=== PATIENT | male | born 1960 | race Caucasian/White ===

== ENCOUNTER → 2018-07-21 09:14 | Outpatient (CLI) | payer OTHER, SELFPAY ==
[2018-05-28 15:23] VITALS: BMI 31.6
[2018-07-21 10:55] LABS: AST(SGOT) 26 U/L (15-37); Alanine Aminotransfer ALT/SGPT 49 U/L (16-61); Albumin, Serum 4.2 g/dL (3.2-5.0); Alkaline Phosphatase 53 U/L (45-117); Bilirubin, Direct 0.18 mg/dL (0.00-0.30); Cholesterol 131 mg/dL (200); Globulin 3.6 g/dL (2.2-4.2); High Density Lipoprotein 62 mg/dL; Protein, Total 7.8 g/dL (6.4-8.2); Triglycerides 50 mg/dL; Very Low Density Lipoprotein 10 mg/dL (5-40)
== END ==
PROVIDERS: Referring Provider Internal Medicine Cardiovascular Disease; Visit Provider Internal Medicine Cardiovascular Disease
DX: E78.5 Hyperlipidemia, unspecified (principal); I25.10 Atherosclerotic heart disease of native coronary artery without angina pectoris
CPT/HCPCS: 36415; 80061; 80076

== ENCOUNTER → 2018-09-26 08:40 | Outpatient (CLI) | payer OTHER, SELFPAY ==
[2018-05-28 15:23] VITALS: BMI 31.6
--- NOTE | 2018-09-26 08:42 | ECHOD_ITS ---
Reason For Study: BICUSPID AORTIC VALVE Procedure This was a 2D Doppler, Color Flow transthoracic echocardiogram. Exam performed in department. Left Ventricle Normal size and thickness. The estimated ejection fraction is 65 %. Normal diastology for age. No regional wall motion abnormalities noted. Right Ventricle Mildly dilated right ventricle. Normal systolic function. Atria Normal left atrium. Normal right atrium. Normal atrial septum. Mitral Valve The mitral valve is structurally normal. No prolapse or stenosis seen. Tricuspid Valve Normal tricuspid valve. Trivial tricuspid valve insufficiency. Right ventricular systolic pressure estimated to be 41 mmHg. Mild pulmonary hypertension. Aortic Valve Bicuspid aortic valve. Moderate focal aortic valve thickening. Moderate focal aortic valve calcification. Moderate restriction of the aortic valve. Mild aortic stenosis. Peak aortic valve gradient 26 mmHg. Mean aortic valve gradient 16 mmHg. Calculated aortic valve area (continuity equation) is 2.3 cm2. Pulmonic Valve Normal pulmonic valve. Great Vessels Mildly dilated aortic root. Mild atherosclerosis of the aortic arch. Normal inferior vena cava. Inferior vena cava collapse with sniff. Pericardium/Pleural No pericardial effusion. MMode/2D Measurements & Calculations LVIDd: 5.3 cm IVSd: 0.95 cm LVOT diam: 2.4 cm LVIDs: 3.0 cm LVPWd: 1.00 cm LVOT area: 4.4 cm2 RVDd: 4.2 cm FS: 42.9 % Ao root diam: 3.9 cm LAV(MOD-bp): 48.3 ml LVAd ap4: 32.4 cm2 LAV(MOD-bp) Indexed: 23.4 ml/m2 EDV(MOD-sp4): 101.1 ml LAV(MOD-sp2): 45.3 ml EDV(sp4-el): 106.3 ml LAV(MOD-sp4): 41.9 ml LVAs ap4: 17.6 cm2 ESV(MOD-sp4): 36.9 ml ESV(sp4-el): 38.6 ml EF(MOD-sp4): 63.5 % EF(sp4-el): 63.7 % SV(MOD-sp4): 64.2 ml SV(sp4-el): 67.7 ml LA A4 area: 16.3 cm2 LA dimension(2D): 3.3 cm RA A4 area: 14.4 cm2 Time Measurements MV dec time: 0.24 sec Doppler Measurements & Calculations MV E max aj: 83.1 cm/sec Lat Peak E' Aj: 9.6 cm/sec Med Peak E' Aj: 8.9 cm/sec MV A max aj: 75.6 cm/sec E/E' lat: 8.6 E/E' med: 9.3 MV E/A: 1.1 Ao V2 max: 254.9 cm/sec LV V1 max: 118.1 cm/sec SV(LVOT): 134.5 ml Ao max P.0 mmHg LV V1 max P.6 mmHg Ao V2 mean: 187.2 cm/sec LV V1 mean P.5 mmHg Ao mean P.6 mmHg LV V1 mean: 87.6 cm/sec Ao V2 VTI: 58.9 cm LV V1 VTI: 30.4 cm TESSA(I,D): 2.3 cm2 TESSA(V,D): 2.0 cm2 PA V2 max: 125.0 cm/sec TR max aj: 299.9 cm/sec TR max P.0 mmHg Interpretation Summary The estimated ejection fraction is 65 %. Normal diastology for age. Mildly dilated right ventricle. Trivial tricuspid valve insufficiency. Right ventricular systolic pressure estimated to be 41 mmHg. Mild aortic stenosis. Calculated aortic valve area (continuity equation) is 2.3 cm2. Mildly dilated aortic root. Mild atherosclerosis of the aortic arch. Compared to echo report dated 08/26/2015, LV Function, degree of aortic stenosis and aortic root have remained the same but RVSP hsa increased from 34 to 41 mm Hg. Ordering Physician: Triston Whittington Referring Physician: Triston Whittington Performed By: Julienne Arrieta RDCS
== END ==
PROVIDERS: Referring Provider Internal Medicine Cardiovascular Disease; Visit Provider Internal Medicine Cardiovascular Disease
DX: I35.2 Nonrheumatic aortic (valve) stenosis with insufficiency (principal); I71.2 Thoracic aortic aneurysm, without rupture; I10 Essential (primary) hypertension; E78.5 Hyperlipidemia, unspecified
CPT/HCPCS: 93306

== ENCOUNTER → 2019-08-26 08:09 | Outpatient (CLI) | payer OTHER, SELFPAY ==
[2019-07-02 11:18] VITALS: BMI 31.1
--- NOTE | 2019-08-26 08:10 | CT_ITS ---
STUDY: CTA CHEST REASON FOR EXAM: Male, 59 years old. TAA FOLLOW-UP. PLEASE COMPARE AND GIVE MEASUREMENTS WITH CTA CHEST FROM 02/22/16 RADIATION DOSAGE (If Supplied By Facility): CTDIvol = ( 44.50 ) mGy, DLP = ( 5336.50 ) mGycm TECHNIQUE: The examination was performed with the intravenous administration of 100 ML ISOVUE 300. Post-processing of the angiographic images was performed, with multiplanar reformation and 3D reconstruction. Individualized dose optimization techniques were used for this CT. COMPARISON: Comparison is made with prior examination dated September 07, 2015. FINDINGS: Normal enhancement of the main pulmonary artery and right and left pulmonary arteries. Normal enhancement of the bilateral peripheral pulmonary arteries. There is no demonstrated pulmonary embolism. There is aneurysmal dilatation of the ascending aorta. The transverse diameter of the ascending aorta measures 47.1 mm''s. There is no demonstrated aortic dissection. Normal heart and pericardium. Mitral valve calcification. There are visualized mediastinal lymph nodes, which are within normal size limits, and with normal morphology. Normal hilar regions. Normal visualized trachea and bronchi. The lungs are well expanded. Normal pulmonary parenchyma. Normal pleura. Normal chest wall structures. There are degenerative changes of thoracic spine. Diffuse fatty infiltration of the liver. CT/CTA Chest W/WO Contrast IMPRESSION: Stable dilatation of the ascending thoracic aortic aneurysm. Electronically Signed: Jimmy Roa, at 11:10 EST , Service support ,
== END ==
PROVIDERS: PCP Family Medicine; Referring Provider Internal Medicine Cardiovascular Disease; Visit Provider Internal Medicine Cardiovascular Disease
DX: I71.2 Thoracic aortic aneurysm, without rupture (principal); I25.10 Atherosclerotic heart disease of native coronary artery without angina pectoris; Q23.1 Congenital insufficiency of aortic valve
CPT/HCPCS: 71275; Q9967

== ENCOUNTER → 2020-05-25 09:08 | Outpatient (CLI) | payer OTHER, SELFPAY ==
[2020-02-25 09:41] VITALS: BMI 30.9
--- NOTE | 2020-05-25 09:08 | ECHOD_ITS ---
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 The study was technically difficult. Exam performed in department. Left Ventricle Normal LV size. Mild concentric left ventricular hypertrophy. Left ventricular systolic function is normal. The estimated ejection fraction is 60 %. No regional wall motion abnormalities noted. Right Ventricle Normal RV size. Normal systolic function. Atria Normal left atrium. Normal right atrium. Mitral Valve Normal mitral valve. Tricuspid Valve Normal tricuspid valve. Aortic Valve The aortic valve is not well visualized. Cannot exclude bicuspid. Peak aortic valve gradient 37 mmHg. Mean aortic valve gradient 25 mmHg. Calculated aortic valve area (continuity equation) is 1.1 cm2. Mild to moderate aortic stenosis. Pulmonic Valve Normal pulmonic valve. Great Vessels Normal aortic root. The pulmonary artery is normal size. Normal inferior vena cava. Pericardium/Pleural No pericardial effusion. Medication Previously negative bubble on SANTOS. MMode/2D Measurements & Calculations LVIDd: 4.5 cm IVSd: 1.3 cm LVOT diam: 2.0 cm LVIDs: 2.7 cm LVPWd: 1.2 cm FS: 40.3 % LVOT area: 3.2 cm2 Ao root diam: 4.3 cm LAV(MOD-bp): 42.3 ml LVAd ap4: 33.3 cm2 LAV(MOD-bp) Indexed: 20.6 ml/m2 EDV(MOD-sp4): 104.7 ml LAV(MOD-sp2): 41.7 ml EDV(sp4-el): 110.9 ml LAV(MOD-sp4): 39.6 ml LVAs ap4: 17.9 cm2 ESV(MOD-sp4): 37.6 ml ESV(sp4-el): 39.1 ml EF(MOD-sp4): 64.1 % EF(sp4-el): 64.8 % SV(MOD-sp4): 67.1 ml SV(sp4-el): 71.8 ml LA A4 area: 14.0 cm2 LA dimension(2D): 3.3 cm RA A4 area: 14.8 cm2 Time Measurements MV dec time: 0.25 sec Doppler Measurements & Calculations MV E max aj: 70.7 cm/sec Lat Peak E' Aj: 7.7 cm/sec Med Peak E' Aj: 7.2 cm/sec MV A max aj: 77.5 cm/sec E/E' lat: 9.2 E/E' med: 9.9 MV E/A: 0.91 MV V2 max: 91.1 cm/sec Ao V2 max: 283.1 cm/sec LV V1 max: 92.5 cm/sec MV max P.3 mmHg Ao max P.4 mmHg LV V1 max P.5 mmHg MV V2 mean: 60.2 cm/sec Ao V2 mean: 239.6 cm/sec LV V1 mean P.8 mmHg MV mean P.6 mmHg Ao mean P.4 mmHg LV V1 mean: 91.7 cm/sec MV V2 VTI: 24.7 cm Ao V2 VTI: 73.4 cm LV V1 VTI: 30.3 cm MVA(VTI): 4.0 cm2 TESSA(I,D): 1.3 cm2 TESSA(V,D): 1.1 cm2 SV(LVOT): 97.8 ml TR max aj: 257.9 cm/sec MV P1/2t-pr_phl: 71.8 msec TR max P.6 mmHg Interpretation Summary Normal LV size. Left ventricular systolic function is normal. Mean aortic valve gradient 25 mmHg. Calculated aortic valve area (continuity equation) is 1.1 cm2. Mild to moderate aortic stenosis. The estimated ejection fraction is 60 %. Mild concentric left ventricular hypertrophy. Ordering Physician: Triston Whittington Referring Physician: IMELDA CREWS Performed By: Mela Aguilar, MANJINDER, RVT
[2020-05-25 11:19] LABS: AST(SGOT) 36 U/L (15-37); Alanine Aminotransfer ALT/SGPT 57 U/L (16-61); Albumin, Serum 4.1 g/dL (3.2-5.0); Alkaline Phosphatase 59 U/L (45-117); Bilirubin, Direct 0.12 mg/dL (0.00-0.30); Cholesterol 143 mg/dL (200); Globulin 3.8 g/dL (2.2-4.2); High Density Lipoprotein 63 mg/dL; Protein, Total 7.9 g/dL (6.4-8.2); Triglycerides 45 mg/dL; Very Low Density Lipoprotein 9 mg/dL (5-40)
== END ==
PROVIDERS: PCP Family Medicine; Referring Provider Internal Medicine Cardiovascular Disease; Visit Provider Internal Medicine Cardiovascular Disease
DX: I25.10 Atherosclerotic heart disease of native coronary artery without angina pectoris (principal); I35.2 Nonrheumatic aortic (valve) stenosis with insufficiency; I71.2 Thoracic aortic aneurysm, without rupture; E78.00 Pure hypercholesterolemia, unspecified; E78.5 Hyperlipidemia, unspecified
CPT/HCPCS: 36415; 80061; 80076; 93306

== ENCOUNTER → 2020-09-10 07:24 | Outpatient (CLI) | payer OTHER, SELFPAY ==
[2020-09-03 09:12] VITALS: BMI 31.9
--- NOTE | 2020-09-10 07:35 | CT_ITS ---
STUDY: CTA CHEST REASON FOR EXAM: Male, 60 years old. TAA RADIATION DOSAGE (If Supplied By Facility): CTDIvol = ( 12.85 ) mGy, DLP = ( 516. ) mGycm TECHNIQUE: The examination was performed with the intravenous administration of IV 100mL Isovue-370. Post-processing of the angiographic images was performed, with multiplanar reformation and 3D reconstruction. Individualized dose optimization techniques were used for this CT. COMPARISON: 08/26/2019 FINDINGS: Normal enhancement of the main pulmonary artery and right and left pulmonary arteries. Normal enhancement of the bilateral peripheral pulmonary arteries. There is no demonstrated pulmonary embolism. There is aneurysmal dilatation of the ascending aorta. The transverse diameter of the ascending aorta measures 47.1 mm''''s. There is no demonstrated aortic dissection. Normal heart and pericardium. Mitral valve calcification. There are visualized mediastinal lymph nodes, which are within normal size limits, and with normal morphology. Normal hilar regions. Normal visualized trachea and bronchi. The lungs are well expanded. Normal pulmonary parenchyma. Normal pleura. Normal chest wall structures. There are degenerative changes of thoracic spine. Diffuse fatty infiltration of the liver. CT/CTA Chest W/WO Contrast IMPRESSION: Stable dilatation of the ascending thoracic aortic aneurysm. Electronically Signed: Ramesh Betancur MD at 16:32 EST Tel , Service support ,
[2020-09-10 07:46] LABS: CREATININE FINGERSTICK 1.1 mg/dL (0.70-1.30); EGFR FINGERSTICK > 60.0000 mL/min (>60)
== END ==
PROVIDERS: PCP Family Medicine; Referring Provider Physician Assistant Medical; Visit Provider Physician Assistant Medical
DX: Q23.1 Congenital insufficiency of aortic valve (principal); I71.2 Thoracic aortic aneurysm, without rupture; E78.5 Hyperlipidemia, unspecified; I10 Essential (primary) hypertension; I25.10 Atherosclerotic heart disease of native coronary artery without angina pectoris
CPT/HCPCS: 71275; Q9967

== ENCOUNTER → 2021-07-14 12:33 | Outpatient (CLI) | payer OTHER, SELFPAY ==
--- NOTE | 2021-07-14 12:40 | ECHOD_ITS ---
Reason For Study: MURMUR Procedure This was a 2D Doppler, Color Flow transthoracic echocardiogram. The study was technically difficult. Exam performed in department. Left Ventricle Normal LV size. Sigmoid septum. Left ventricular systolic function is normal. The estimated ejection fraction is 65 %. Diastolic function is indeterminate. No regional wall motion abnormalities noted. Right Ventricle Normal RV size. Normal systolic function. Atria Normal left atrium. Normal right atrium. No doppler evidence for ASD. Mitral Valve There is mild mitral annular calcification. Normal mitral valve. Trivial mitral valve insufficiency. Tricuspid Valve Normal tricuspid valve. Trivial tricuspid valve insufficiency. Unable to estimate RV systolic pressure/pulmonary artery pressure due to technically difficult study. Aortic Valve The aortic valve is not well visualized, however, based upon the 2D echocardiographic images obtained there appears to be diffuse thickening, calcification, and partial restriction with spectral Doppler findings compatible with mild to moderate aortic valve stenosis.. Pulmonic Valve The pulmonic valve is not well visualized. Great Vessels The aortic root is not well visualized. Pericardium/Pleural No pericardial effusion. MMode/2D Measurements & Calculations LVIDd: 4.4 cm IVSd: 1.2 cm LVOT diam: 2.3 cm LVIDs: 3.0 cm LVPWd: 1.1 cm LVOT area: 4.2 cm2 RVDd: 3.4 cm FS: 32.7 % LAV(MOD-bp): 51.0 ml LA A4 area: 15.0 cm2 LA dimension(2D): 3.5 cm LAV(MOD-bp) Indexed: 25.2 ml/m2 LAV(MOD-sp2): 58.1 ml LAV(MOD-sp4): 41.1 ml RA A4 area: 14.3 cm2 Time Measurements MV dec time: 0.28 sec Doppler Measurements & Calculations MV E max aj: 71.4 cm/sec Lat Peak E' Aj: 8.3 cm/sec Med Peak E' Aj: 7.3 cm/sec MV A max aj: 78.6 cm/sec E/E' lat: 8.6 E/E' med: 9.8 MV E/A: 0.91 Ao V2 max: 318.6 cm/sec LV V1 max: 133.0 cm/sec SV(LVOT): 138.4 ml Ao max P.2 mmHg LV V1 max P.1 mmHg Ao V2 mean: 219.5 cm/sec LV V1 mean P.2 mmHg Ao mean P.9 mmHg LV V1 mean: 99.7 cm/sec Ao V2 VTI: 69.5 cm LV V1 VTI: 32.9 cm TESSA(I,D): 2.0 cm2 TESSA(V,D): 1.8 cm2 PA V2 max: 115.1 cm/sec ECHO/Echo Complete Interpretation Summary The study was technically difficult. Left ventricular systolic function is normal. The estimated ejection fraction is 65 %. Sigmoid septum. There is mild mitral annular calcification. Trivial mitral valve insufficiency. Trivial tricuspid valve insufficiency. The aortic valve is not well visualized, however, based upon the 2D echocardiog raphic images obtained there appears to be diffuse thickening, calcification, and partial res triction with spectral Doppler findings compatible with mild to moderate aortic valve stenosi s.. Unable to estimate RV systolic pressure/pulmonary artery pressure due to techni martinez difficult study. Diastolic function is indeterminate. Ordering Physician: Sandoval Gilbert Referring Physician: Nikita Wright Performed By: Мария Hodge, MANJINDER, RVT
== END ==
PROVIDERS: PCP Family Medicine; Referring Provider Internal Medicine Cardiovascular Disease; Visit Provider Internal Medicine Cardiovascular Disease
DX: I25.10 Atherosclerotic heart disease of native coronary artery without angina pectoris (principal); Q23.1 Congenital insufficiency of aortic valve; I71.2 Thoracic aortic aneurysm, without rupture; E78.5 Hyperlipidemia, unspecified; I10 Essential (primary) hypertension
CPT/HCPCS: 93306

== ENCOUNTER → 2021-07-20 08:30 | Outpatient (CLI) | payer OTHER, SELFPAY ==
[2021-07-20 09:25] LABS: AST(SGOT) 40 U/L (15-37); Alanine Aminotransfer ALT/SGPT 51 U/L (16-61); Albumin, Serum 4.2 g/dL (3.2-5.0); Alkaline Phosphatase 57 U/L (45-117); Bilirubin, Direct 0.09 mg/dL (0.00-0.30); Cholesterol 164 mg/dL (200); High Density Lipoprotein 82 mg/dL; Protein, Total 8.2 g/dL (6.4-8.2); Triglycerides 50 mg/dL; Very Low Density Lipoprotein 10 mg/dL (5-40)
== END ==
PROVIDERS: PCP Family Medicine; Referring Provider Internal Medicine Cardiovascular Disease; Visit Provider Internal Medicine Cardiovascular Disease
DX: E78.00 Pure hypercholesterolemia, unspecified (principal)
CPT/HCPCS: 36415; 80061; 80076

== ENCOUNTER → 2021-12-31 | Outpatient (CLI) | payer OTHER, SELFPAY | END | disposition home or self-care (01) | LOC: LAB 09:05 | PROVIDERS: PCP Family Medicine; Visit Provider Internal Medicine Cardiovascular Disease | DX: E78.00 Pure hypercholesterolemia, unspecified (principal) ==

== ENCOUNTER → 2022-02-14 | Outpatient (CLI) | payer OTHER, SELFPAY ==
--- NOTE | 2022-02-14 17:36 | CT_ITS ---
EXAM: CT ANGIOGRAPHY CHEST WITHOUT AND WITH INTRAVENOUS CONTRAST CLINICAL INDICATION: Thoracic Aortic Aneursym TECHNIQUE: Helically acquired angiography images were obtained of the chest without and with intravenous contrast. This CT exam was performed using one or more of the following dose reduction techniques: automated exposure control, adjustment of the mA and/or kV according to patient size, and/or use of iterative reconstruction technique. This report was created using [employer] report generation technology. MIP reconstructed images were created and reviewed. CONTRAST: IV 100mL Isovue-370 RADIATION DOSE: CTDIvol = 11.76 mGy, DLP = 628.55 mGy-cm COMPARISON: 09/10/2020 FINDINGS: PULMONARY ARTERIES: No demonstrated pulmonary embolism or arterial dissection. AORTA: 47 mm aneurysmal dilation of the ascending thoracic aorta. This is stable. There is atherosclerotic calcification of the aortic arch with tortuosity and elongation of the aortic arch and descending thoracic aorta. No evidence of dissection. GREAT VESSELS OF AORTIC ARCH: Unremarkable. Normal in caliber. No evidence of dissection. LUNGS AND PLEURAL SPACES: Unremarkable. No mass. No consolidation or edema. No pleural effusion or thickening. No pneumothorax. HEART: There are calcifications of the coronary arteries. No pericardial effusion. No signs of right heart strain, ratio of right ventricle to left ventricle measures less than 1. MEDIASTINUM: Unremarkable. No mediastinal or hilar adenopathy. Esophagus is unremarkable. No hiatal hernia. THYROID: Unremarkable. No thyroid lesions. BONES/JOINTS: There are degenerative changes of the shoulders. There are multi-level degenerative changes of the thoracic spine. No suspicious lytic or blastic abnormality. LIVER: Fatty liver. GALLBLADDER AND BILE DUCTS: Gallstones. CT/CTA Chest W/WO Contrast IMPRESSION: 1. Fatty liver. 2. Gallstones. 3. No demonstrated pulmonary embolism or arterial dissection. 4. 47 mm aneurysmal dilation of the ascending thoracic aorta. This is stable. Electronically Signed: Renny Mendes MD at 19:33 EDT ,
[2022-02-14 18:05] LABS: CREATININE FINGERSTICK < 0.9 mg/dL (0.70-1.30); EGFR FINGERSTICK > 60.0000 mL/min (>60)
== END | disposition home or self-care (01) ==
PROVIDERS: PCP Family Medicine; Visit Provider Nurse Practitioner Gerontology
DX: I71.2 Thoracic aortic aneurysm, without rupture (principal)
CPT/HCPCS: 71275; Q9967

== ENCOUNTER → 2022-03-14 | Outpatient (CLI) | payer OTHER, SELFPAY ==
--- NOTE | 2022-03-14 07:37 | CDU_ITS ---
Reason For Study: DIZZINESS Rt. Velocities/BP Lt. Velocities/BP Prox CCA 75.1/26.9 cm/sec. Prox CCA 97.8/24.1 cm/sec. Mid CCA 73.8/29.5 cm/sec. Mid CCA 79.3/22.8 cm/sec. Dist CCA 88.1/33.4 cm/sec. Dist CCA 80.6/25.3 cm/sec. Prox ICA 71.2/25.6 cm/sec. Prox ICA 75.7/22.8 cm/sec. Mid ICA 79.0/20.3 cm/sec. Mid ICA 65.8/31.4 cm/sec. Dist ICA 44.1/10.8 cm/sec. Dist ICA 75.7/36.4 cm/sec. Rt. ICA/CCA = 79.0/73.8=1.07. Lt. ICA/CCA = 75.7/79.3=0.95. Prox ECA 79.0/21.6 cm/sec. Prox ECA 67.1/19.2 cm/sec. Rt. Vert. 39.3/14.7 cm/sec. Lt. Vert. 56.7/22.6 cm/sec. Right Extracranial There is intimal thickening but no significant atherosclerotic plaque noted in the right common carotid artery. There is intimal thickening but no significant atherosclerotic plaque noted in the right internal carotid artery. There is intimal thickening but no significant atherosclerotic plaque noted in the right external carotid artery. Antegrade flow is noted in the right vertebral artery. Left Extracranial There is intimal thickening but no significant atherosclerotic plaque noted in the left common carotid artery. There is intimal thickening but no significant atherosclerotic plaque noted in the left internal carotid artery. There is intimal thickening but no significant atherosclerotic plaque noted in the left external carotid artery. Antegrade flow is noted in the left vertebral artery. Procedure Carotid Duplex 32547. The study was technically difficult. Due to high bifurcation bilaterally. Exam performed in department. VL/Carotid Duplex Ultrasound Interpretation Summary Intimal thickening at the proximal right internal carotid artery with less than 50% stenosis Less than 50% stenosis right external carotid artery Intimal thickening at the proximal left internal carotid artery with less than 50% stenosis Less than 50% stenosis left external carotid artery Patent antegrade vertebrals bilaterally Ordering Physician: Winsome Larson Referring Physician: Nikita Wright Performed By: Мария Hodge RDCS, RVT
== END | disposition home or self-care (01) ==
PROVIDERS: PCP Family Medicine; Referring Provider Nurse Practitioner Gerontology; Visit Provider Nurse Practitioner Gerontology
DX: R42 Dizziness and giddiness (principal)
CPT/HCPCS: 93880

== ENCOUNTER 2022-07-05 09:30 | Outpatient (CLI) | payer OTHER, SELFPAY ==
[2022-07-05 10:40] LABS: AST(SGOT) 24 U/L (15-37); Alanine Aminotransfer ALT/SGPT 32 U/L (16-61); Albumin, Serum 3.9 g/dL (3.2-5.0); Alkaline Phosphatase 54 U/L (45-117); Bilirubin, Direct 0.19 mg/dL (0.00-0.30); Cholesterol 146 mg/dL (200); Globulin 4.3 g/dL (2.2-4.2); High Density Lipoprotein 67 mg/dL; Protein, Total 8.2 g/dL (6.4-8.2); Triglycerides 37 mg/dL; Very Low Density Lipoprotein 7 mg/dL (5-40)
== END 2022-07-05 23:59 | disposition home or self-care (01) ==
LOC: LAB 09:32
PROVIDERS: PCP Family Medicine; Referring Provider Nurse Practitioner Gerontology; Visit Provider Nurse Practitioner Gerontology
DX: E78.5 Hyperlipidemia, unspecified (principal)
CPT/HCPCS: 36415; 80061; 80076

== ENCOUNTER → 2023-02-02 | Outpatient (CLI) | payer OTHER, SELFPAY ==
--- NOTE | 2023-02-02 08:23 | CT_ITS ---
STUDY: CTA CHEST REASON FOR EXAM: Male, 62 years old. TAA F/U RADIATION DOSAGE (If Supplied By Facility): CTDIvol = ( 19.18 ) mGy, DLP = ( 377.12 ) mGycm TECHNIQUE: The examination was performed with the intravenous administration of IV 100mL Isovue-300. Post-processing of the angiographic images was performed, with multiplanar reformation and 3D reconstruction. Individualized dose optimization techniques were used for this CT. COMPARISON: Comparison is made with prior study dated February 14, 2022. FINDINGS: Stable small benign-appearing bilateral axillary lymph nodes. Normal enhancement of the main pulmonary artery and right and left pulmonary arteries. Normal enhancement of the bilateral peripheral pulmonary arteries. There is no demonstrated pulmonary embolism. There is aneurysmal dilatation of the ascending aorta. The transverse diameter of the ascending aorta measures 49.9 mm''s. There is no demonstrated aortic dissection. There are calcifications of the coronary arteries. Normal mediastinum. Normal hilar regions. Normal visualized trachea and bronchi. The lungs are well expanded. Normal pulmonary parenchyma. Normal pleura. Normal chest wall structures. There are degenerative changes of thoracic spine. Fatty infiltration of the liver. Gallstones. CT/CTA Chest W/WO Contrast IMPRESSION: 49.9 mm aneurysmal dilatation of the ascending thoracic aorta. Electronically Signed: Jimmy Roa MD at 10:08 EDT ,
[2023-02-02 08:50] LABS: CREATININE FINGERSTICK < 0.9 mg/dL (0.70-1.30); EGFR FINGERSTICK > 60.0000 mL/min (>60)
== END | disposition home or self-care (01) ==
LOC: CT 08:22
PROVIDERS: PCP Family Medicine; Referring Provider Nurse Practitioner Gerontology; Visit Provider Nurse Practitioner Gerontology
DX: Q23.1 Congenital insufficiency of aortic valve (principal); I77.819 Aortic ectasia, unspecified site
CPT/HCPCS: 71275; Q9967

== ENCOUNTER → 2023-02-15 | Outpatient (CLI) | payer OTHER, SELFPAY ==
--- NOTE | 2023-02-15 13:41 | ECHOD_ITS ---
Reason For Study: PRE-OP, BAV Procedure This was a 2D Doppler, Color Flow transthoracic echocardiogram. The study was technically difficult. Exam performed in department. Left Ventricle Normal LV size. Left ventricular systolic function is normal. The estimated ejection fraction is 60 %. Stage 1 diastolic dysfunction. No regional wall motion abnormalities noted. Right Ventricle Normal RV size. Normal systolic function. Tricuspid Valve Normal tricuspid valve. Mild tricuspid valve insufficiency. Pulmonary artery systolic pressure is 23 mmHg. Aortic Valve Bicuspid aortic valve. Peak aortic valve gradient 42 mmHg. Mean aortic valve gradient 23 mmHg. Mild to moderate aortic stenosis. Calculated aortic valve area (continuity equation) is 1.2 cm2. Pulmonic Valve Normal pulmonic valve. Great Vessels Mild to moderately dilated aortic root. The pulmonary artery is normal size. Normal inferior vena cava. Pericardium/Pleural No pericardial effusion. MMode/2D Measurements & Calculations LVIDd: 4.7 cm IVSd: 1.1 cm LVOT diam: 2.0 cm LVIDs: 3.0 cm LVPWd: 1.0 cm LVOT area: 3.2 cm2 RVDd: 3.8 cm FS: 36.0 % Ao root diam: 4.7 cm LAV(MOD-bp): 40.7 ml LVAd ap4: 27.1 cm2 LAV(MOD-bp) Indexed: 19.9 ml/m2 LVLd ap4: 8.4 cm LAV(MOD-sp2): 45.5 ml EDV(MOD-sp4): 70.3 ml LAV(MOD-sp4): 36.0 ml EDV(sp4-el): 73.6 ml LVAs ap4: 14.8 cm2 LVLs ap4: 7.3 cm ESV(MOD-sp4): 25.7 ml ESV(sp4-el): 25.7 ml EF(MOD-sp4): 63.5 % EF(sp4-el): 65.0 % SV(MOD-sp4): 44.6 ml SV(MOD-sp2): 50.3 ml LVAd ap2: 28.5 cm2 LVLd ap2: 8.7 cm EDV(MOD-sp2): 77.1 ml EDV(sp2-el): 79.0 ml LVAs ap2: 14.9 cm2 LVLs ap2: 7.1 cm ESV(MOD-sp2): 26.9 ml ESV(sp2-el): 26.6 ml EF(MOD-sp2): 65.2 % SV(sp4-el): 47.9 ml LA A4 area: 14.5 cm2 LA dimension(2D): 3.3 cm TAPSE: 2.2 cm RA A4 area: 16.6 cm2 Time Measurements MV dec time: 0.23 sec Doppler Measurements & Calculations MV E max aj: 80.6 cm/sec Lat Peak E' Aj: 11.6 cm/sec Med Peak E' Aj: 7.3 cm/sec MV A max aj: 82.4 cm/sec E/E' lat: 7.0 E/E' med: 11.0 MV E/A: 0.98 MV dec slope: 356.8 cm/sec2 Ao V2 max: 321.2 cm/sec LV V1 max: 122.6 cm/sec Ao max P.0 mmHg LV V1 max P.0 mmHg Ao V2 mean: 218.1 cm/sec LV V1 mean P.7 mmHg Ao mean P.3 mmHg LV V1 mean: 92.9 cm/sec Ao V2 VTI: 73.5 cm LV V1 VTI: 29.7 cm AV (velocity ratio): 0.40 TESSA(I,D): 1.3 cm2 TESSA(V,D): 1.2 cm2 SV(LVOT): 95.2 ml PA V2 max: 103.0 cm/sec TR max aj: 224.5 cm/sec PA max PG (full): 2.2 mmHg TR max P.2 mmHg ECHO/Echo Complete Interpretation Summary Normal LV size. Left ventricular systolic function is normal. The estimated ejection fraction is 60 %. Mild to moderately dilated aortic root. Stage 1 diastolic dysfunction. Bicuspid aortic valve. Mean aortic valve gradient 23 mmHg. Mild to moderate aortic stenosis. Ordering Physician: Yfn Guidry Referring Physician: Yfn Guidry MD Performed By: Suzan Fuentes RDCS
== END | disposition home or self-care (01) ==
LOC: CVS 13:40
PROVIDERS: PCP Family Medicine; Referring Provider Internal Medicine Cardiovascular Disease; Visit Provider Internal Medicine Cardiovascular Disease
DX: I77.810 Thoracic aortic ectasia (principal); Q23.1 Congenital insufficiency of aortic valve; I25.10 Atherosclerotic heart disease of native coronary artery without angina pectoris
CPT/HCPCS: 93306

== ENCOUNTER → 2023-02-20 | Day surgery (SDC) | payer OTHER, SELFPAY ==
--- NOTE | 2023-02-06 11:12 | PCM.HP.BLA ---
History and Physical Date of Admission: 02/20/23 This is a 62-year-old white male who presents today for a cardiac catheterization. He has a history of CAD-nonobstructive, aortic valve disorder with concerns of bicuspid aortic valve with aortic valve stenosis, thoracic ascending aortic aneurysm, hyperlipidemia, and hypertension. Most recent chest CTA from 02/02/2023 demonstrated a 49.9 mm aneurysmal dilatation of the ascending thoracic aorta. This has increased from 2021. From a cardiac standpoint, the patient is doing well. He denies any palpitations, chest pain, pressure or heaviness. He denies SOB, Orthopnea, and PND. He does not have bleeding issues; no blood in urine, stool or nosebleeds. He denies any decrease in energy level, myalgias, or claudication. He does not have edema, or sudden weight gain. He denies dizziness, lightheadedness, syncopal or near syncopal episodes, and headaches. Intake Vital Signs See EMR Allergies See EMR Medications SEE EMR [facility] Medical History Atherosclerotic heart disease of [place] coronary artery without angina pectoris Bicuspid aortic valve Essential hypertension Hyperlipidemia Nonrheumatic aortic (valve) stenosis with insufficiency Thoracic aortic aneurysm without rupture Surgical History History of repair of anterior cruciate ligament of left knee History of right and left heart catheterization (04/15/16) Family History Mother , Age 80 Congestive heart failure Social History Smoking Status: Never smoker ROS Const Const: Negative for fatigue, weakness, fever(s), headache(s), chills, frequent falls, weight gain or weight loss Eyes Eyes: Negative for blind spots, loss of peripheral vision, transient loss of vision, blurry vision, change in vision, double vision, floaters or tunnel vision ENT ENT: Negative for headache(s), dizziness, Nosebleed/epistaxis, balance problems or neck pain Cardio Chest Pain: No Palpitations: No Edema: None Muscle aches with walking: None Resp Respiratory: Negative for SOB with activity, SOB at rest or SOB orthopnea\SOB lying down GI GI: Negative nausea, vomiting, heartburn, bloating, vomiting blood/hematemesis, bright, red blood in stools or black,tarry stools Musc Musc: Negative for muscle aches/ myalgia, muscle weakness, joint pain or balance problems Neuro Neuro: Negative for dizziness, lightheadedness, near syncope, syncope, orthostatic symptoms, frequent falls, headache(s), weakness, blurry vision or double vision Hugo Hematologic/Lymphatic: Negative for easy bleeding or easy bruising Endo Endo: Negative for fatigue Cardiology Exam Const Appearance: cooperative and no acute distress Orientation: alert and oriented x3 Head Head: normal to inspection Ears: hearing grossly normal bilaterally Nose: external nose normal Face and Sinus: face symmetric Eyes General: appearance normal, both eyes and all related structures Eyelids: eyelids normal and eyelid abnormality Conjunctivae: conjunctivae normal EOM: EOM intact bilaterally Neck Neck: normal visual inspection Carotids: Negative bruit Chest Chest inspection: normal inspection of the chest and normal respiratory effort Auscultation: Bilateral: Clear to Auscultation Cardio Palpation: normal PMI Rate: regular rate Rhythm: regular rhythm Heart sounds: S1 normal, S2 normal, murmur and diminished A2; Negative rub or gallop Murmur: Grade 3/6, harsh, crescendo, LVOT, sternal notch and radiates to carotids GI GI: normal to inspection and soft; Negative no hepatosplenomegaly Neuro General: patient alert, patient oriented x3 and CN's II-XI intact bilaterally Skin Skin: no rashes or lesions noted Extremities Pulses: Normal: Right Posterior Tibial Pulse, Left Posterior Tibial Pulse, Right Radial Pulse and Left Radial Pulse Lower Extremity Edema: None: Bilateral Psych Psychological: normal affect Supplemental Info Supplemental Information Echocardiogram 06/2021: Interpretation Summary The study was technically difficult. Left ventricular systolic function is normal. The estimated ejection fraction is 65 %. Sigmoid septum. There is mild mitral annular calcification. Trivial mitral valve insufficiency. Trivial tricuspid valve insufficiency. The aortic valve is not well visualized, however, based upon the 2D echocardiographic images obtained there appears to be diffuse thickening, calcification, and partial restriction with spectral Doppler findings compatible with mild to moderate aortic valve stenosis.. Unable to estimate RV systolic pressure/pulmonary artery pressure due to technically difficult study. Diastolic function is indeterminate. Echocardiogram 04/2020: Normal LV size. Left ventricular systolic function is normal. Mean aortic valve gradient 25 mmHg. Calculated aortic valve area (continuity equation) is 1.1 cm2. Mild to moderate aortic stenosis. The estimated ejection fraction is 60 %. Mild concentric left ventricular hypertrophy. Heart cath 2016: 1. Angiographically normal left circumflex and right coronary artery. 2. Mild nonobstructive disease in the mid portion of the LAD in the range of about 30%. This does not appear to require bypass surgery or intervention at this time. 3. Normal right-sided pressures. 4. Normal cardiac output. 5. Previously documented bicuspid aortic valve with evidence of trivial aortic insufficiency by ascending aortic root angiogram. 6. Dilated ascending aortic root last calculated at 5.[address] scan. Chest CTA 02/02/2023: IMPRESSION: 49.9 mm aneurysmal dilatation of the ascending thoracic aorta. Chest CTA 02/14/2022: EXAM:? CT ANGIOGRAPHY CHEST WITHOUT AND WITH INTRAVENOUS CONTRAST CLINICAL INDICATION:? Thoracic Aortic Aneursym TECHNIQUE:? Helically acquired angiography images were obtained of the chest without and with intravenous contrast.? This CT exam was performed using one or more of the following dose reduction techniques:? automated exposure control, adjustment of the mA and/or kV according to patient size, and/or use of iterative reconstruction technique.? This report was created using [employer] report ViFlux technology.? MIP reconstructed images were created and reviewed. CONTRAST:? IV 100mL Isovue-370 RADIATION DOSE:? CTDIvol = 11.76 mGy, DLP = 628.55 mGy-cm COMPARISON:? 09/10/2020 FINDINGS: PULMONARY ARTERIES:? No demonstrated pulmonary embolism or arterial dissection. AORTA:? 47 mm aneurysmal dilation of the ascending thoracic aorta.? This is stable.? There is atherosclerotic calcification of the aortic arch with tortuosity and elongation of the aortic arch and descending thoracic aorta. No evidence of dissection. GREAT VESSELS OF AORTIC ARCH:? Unremarkable.? Normal in caliber.? No evidence of dissection. LUNGS AND PLEURAL SPACES:? Unremarkable.? No mass.? No consolidation or edema.? No pleural effusion or thickening.? No pneumothorax. HEART:? There are calcifications of the coronary arteries.? No pericardial effusion.? No signs of right heart strain, ratio of right ventricle to left ventricle measures less than 1. MEDIASTINUM:? Unremarkable.? No mediastinal or hilar adenopathy.? Esophagus is unremarkable.? No hiatal hernia. THYROID:? Unremarkable.? No thyroid lesions. BONES/JOINTS:? There are degenerative changes of the shoulders.? There are multi-level degenerative changes of the thoracic spine.? No suspicious lytic or blastic abnormality. LIVER:? Fatty liver. GALLBLADDER AND BILE DUCTS:? Gallstones. CT/CTA Chest W/WO Contrast IMPRESSION: ? 1.? Fatty liver. ? 2.? Gallstones. ? 3.? No demonstrated pulmonary embolism or arterial dissection. ? 4.? 47 mm aneurysmal dilation of the ascending thoracic aorta.? This is stable. Carotid Duplex 03/14/2022: Interpretation Summary Intimal thickening at the proximal right internal carotid artery with less than 50% stenosis Less than 50% stenosis right external carotid artery Intimal thickening at the proximal left internal carotid artery with less than 50% stenosis Less than 50% stenosis left external carotid artery Patent antegrade vertebrals bilaterally Assessment and Plan Assessment and Plan (1) Atherosclerotic heart disease of [place] coronary artery without angina pectoris: Status: Chronic Comment: Per [facility] 04/15/2016: Diffuse, 30% stenosis in mid LAD; other vessels normal. Plan: Patient has a history of non-obstructive coronary artery disease. His most recent cardiac catheterization from 2015 demonstrated mild nonobstructive disease in the mid portion of the LAD in the range of about 30%. Patient appears stable at this time, and denies any recent symptoms or events. He will continue with his current medical therapy, along with aggressive risk factor and lifestyle modifications. (2) Bicuspid aortic valve: Status: Chronic Plan: Patient has a history of a bicuspid aortic valve. His most recent echocardiogram from 06/2021 demonstrated that the aortic valve was not well visualized, however, based upon the 2D echocardiographic images obtained there appears to be diffuse thickening, calcification, and partial restriction with spectral Doppler findings compatible with mild to moderate aortic valve stenosis. With his increase in aneurysmal dilatation of the ascending thoracic aorta, will proceed with a cardiac catheterization to further assess this. Depending on results, further recommendations will be made. (3) Thoracic aortic aneurysm without rupture: Status: Chronic Plan: Patient has a history of a thoracic aortic aneurysm without rupture. His most recent chest CTA from 02/02/2023 demonstrated 49.9 mm aneurysmal dilatation of the ascending thoracic aorta. This has increased in size since 2021. He will proceed with a cardia catheterization to further assess this. Depending on results, further recommendations will be made. ?
[2023-02-17 08:03] VITALS: BMI 28.8
--- NOTE | 2023-02-20 07:27 | RAD_ITS ---
INDICATION: Cardiac Cath EXAMINATION/TECHNIQUE: X-RAY - XR Chest 2 Views COMPARISON: None. FINDINGS: LINES/DEVICES: None. LUNGS: No consolidation, edema or effusion. No pneumothorax. MEDIASTINUM AND CARDIOVASCULAR STRUCTURES: Cardiac silhouette not enlarged. BONES AND SOFT TISSUES: Unremarkable. RAD/Chest PA and Lateral IMPRESSION: No radiographic evidence of acute cardiopulmonary disease. Electronically Signed: Watson Hernandez MD at 7:43 EDT ,
[2023-02-20 07:33] LABS: Absolute Lymphocyte Count 1.22 X10^3/uL (0.83-4.51); Basophil# 0.02 X10^3/uL; Basophil% 0.4 % (0-1); Eosinophil# 0.12 X10^3/uL; Eosinophils% 2.5 % (0-5); Hemoglobin 14.3 g/dL (13.0-16.5); Lymphocyte # 1.22 X10^3/ul (0.83-4.51); Lymphocyte % 25.2 % (19-41); Mean Corp Hgb Conc 33.3 g/dL (32-36); Mean Corpuscular Hgb 32.6 pg (27.0-32.0); Mean Corpuscular Volume 97.9 fL (80-94); Monocyte# 0.52 X10^3/uL; Monocyte% 10.7 % (0-10); NRBC Flagged by Analyzer 0 % (0-5); Neutrophil # 2.96 X10^3/uL (2.7-7.7); Platelet Count 246 K/mm3 (150-450); RBC Distribution Width CV 13.3 % (11.6-14.6); RBC Distribution Width SD 48.4 fl (35.1-43.9); Red Blood Count 4.39 M/mm3 (4.6-6.2); White Blood Count 4.9 K/mm3 (4.4-11.0)
[2023-02-20 07:43] LABS: Prothrombin Time (Protime)PT. 13.1 SECONDS (11.7-14.9)
[2023-02-20 07:44] LABS: Partial Thromboplast Time 28.2 Seconds (24.1-36.2)
[2023-02-20 07:53] LABS: AST(SGOT) 35 U/L (15-37); Alanine Aminotransfer ALT/SGPT 47 U/L (16-61); Alkaline Phosphatase 52 U/L (45-117); Anion Gap 4 (5-15); BUN 8 mg/dL (7-18); BUN/Creat Ratio 8.5 RATIO (10-20); Bilirubin, Direct 0.16 mg/dL (0.00-0.30); Calcium,Total 8.9 mg/dL (8.5-10.1); Chloride 112 mmol/L (98-107); Cholesterol 181 mg/dL (200); Creatinine, Serum 0.94 mg/dL (0.70-1.30); EST Glomerular Filtration Rate 86 mL/min (>60); Est Glom Filt Rate - Afr Amer 104 mL/min (>60); Estimated Creatinine Clearance 78.83 ml/min; Globulin 3.9 g/dL (2.2-4.2); Glucose 95 mg/dL (74-106); High Density Lipoprotein 75 mg/dL; Potassium 4.5 mmol/L (3.5-5.1); Protein, Total 7.9 g/dL (6.4-8.2); Sodium Level 143 mmol/L (136-145); Triglycerides 83 mg/dL; Very Low Density Lipoprotein 17 mg/dL (5-40)
--- NOTE | 2023-02-20 11:55 | CL.D_ITS ---
Patient Name: ALBERTO SHAW Study Date: 02/20/2023 Performing: Yfn Guidry MD Ht: 68 inches 172.72 cm : 1960 Wt: 189.99 lbs 86.18 kg Age: 62 Gender: male BSA: 2 PROCEDURE(S) PERFORMED [id number])C/COR CLINICAL PROFILE AND INDICATIONS Indications: Valvular Disease Heart Failure: None Stress/Imaging Stress/Image Study Performed: No CAD Presentations: No Sxs, no angina. CONCLUSIONS Non obstructive coronary arteries Aortic Valve Stenosis- Moderate RECOMMENDATIONS Nonobstructive coronary arteries with at least moderate aortic stenosis and a bicuspid valve and a dilated aortic root measuring almost 5 cm. Consider tertiary care referral for evaluation of bicuspid aortic valve and dilated aortic root. DESCRIPTION OF PROCEDURE The patient arrived to the procedure lab. The risks and benefits of the procedure as well as a full description of our services here and current unavailability of surgical backup were fully explained to the patient and/or their significant other prior to the catheterization. The Timeout was completed, verifying the correct patient and procedure. The patient's procedural site was prepped and draped in the usual fashion. Local anesthetic was given subcutaneously to right radial region with Lidocaine 2%. Using a modified Seldinger technique, arterial access was obtained via the right radial artery, a 6Fr sheath was inserted. Left Coronary Artery selective angiography was performed in multiple views using a 5 Fr. 4.0 [place] catheter. Right Coronary Artery selective angiography was then performed in multiple views using a 5 Fr. JR 5 catheter. Ascending (root) aorta selective angiography was then performed in single view. Ascending (root) aorta selective angiography was then performed in single view.The arterial sheath was pulled and a TR Band was applied for hemostasis CORONARY ANGIOGRAPHY DOMINANCE: Right Dominant LEFT HEART ASSESSMENT Left Ventricular Ejection Fraction: by Echo 60 % Normal Left Ventricular systolic function LEFT MAIN: Angiographically normal LEFT ANTERIOR DESCENDING ARTERY: No significant disease noted CIRCUMFLEX ARTERY: No significant disease noted RIGHT CORONARY ARTERY: No significant disease noted VALVE FINDINGS: Aortic Valve Calcification - severe Aortic Valve Stenosis - moderate AORTIC ROOT: Dilated COMPLICATIONS No Complications PROCEDURE MEDICATIONS Versed 1 mg IV Fentanyl 50 mcg IV Versed 1 mg IV Baby Aspirin (81mg) 1 Tabs PO @ 02/20/2023 07:52:36 Heparin given IA 02/20/2023 11:00:02 Verapamil 2.5mg, Ntg 100mcgs, 3000 units of Heparin given IA 02/20/2023 11:00:02 SUMMARY OF HEMODYNAMIC DATA Time AIR REST ECG 07:55:18 AO 108/76 (91) SA 11:02:13 Signed By Yfn Guidry MD On 02/20/2023 11:54:43 Yfn Guidry MD
== END | disposition home or self-care (01) ==
PROVIDERS: Nurse Practitioner Gerontology; PCP Family Medicine; Referring Provider Internal Medicine Cardiovascular Disease; Visit Provider Internal Medicine Cardiovascular Disease
DX: I35.0 Nonrheumatic aortic (valve) stenosis (principal); I71.21 Aneurysm of the ascending aorta, without rupture; I25.10 Atherosclerotic heart disease of native coronary artery without angina pectoris; I10 Essential (primary) hypertension; K80.20 Calculus of gallbladder without cholecystitis without obstruction; E78.5 Hyperlipidemia, unspecified; K76.0 Fatty (change of) liver, not elsewhere classified; Z95.2 Presence of prosthetic heart valve; Z82.49 Family history of ischemic heart disease and other diseases of the circulatory system
CPT/HCPCS: 36415; 71046; 80048; 80061; 80076; 85025; 85610; 85730; 93454; 99152; 99153; J7040; Q9967; C1769; C1894